=== PATIENT | male | born 1980 | race Caucasian/White ===

== ENCOUNTER 2019-02-28 20:30 | Outpatient (CLI) | payer BC | END 2019-02-28 20:31 | disposition home or self-care (01) | LOC: SLEEPLAB 20:30 | PROVIDERS: ATTEND Family Medicine | DX: G47.33 Obstructive sleep apnea (adult) (pediatric) (principal); E66.9 Obesity, unspecified; R53.83 Other fatigue; F41.9 Anxiety disorder, unspecified; F32.9 Major depressive disorder, single episode, unspecified; Z68.34 Body mass index [BMI] 34.0-34.9, adult | CPT/HCPCS: 95811 ==

== ENCOUNTER 2021-09-15 17:30 | Outpatient (CLI) | payer BC | END 2021-09-15 17:31 | disposition home or self-care (01) | LOC: SLEEPLAB 17:30 | PROVIDERS: ATTEND Family Medicine | DX: G47.33 Obstructive sleep apnea (adult) (pediatric) (principal); F41.9 Anxiety disorder, unspecified | CPT/HCPCS: 95800 ==